=== PATIENT | male | born 1995 | race Hispanic/Latino ===

== ENCOUNTER 2016-07-30 11:10 | Emergency (ER) | payer OTHER ==
[~2016-07-30] VITALS: Ht 175.3 cm; Wt 81.8 kg
[2016-07-30 11:17] VITALS: BP 138/82; PULSE 81; RESP 16; O2SAT 99
--- NOTE | 2016-07-30 13:05 | ED.REPORT ---
HPI-General Illness Date of Service Jul 30, 2016 ED Provider: Dillon Cook PA-C Joaquin is a 20-year-old male with history of epilepsy who presents with a laceration on his left thumb. He states that he cut himself with a knife approximately 18 hours ago at work. Denies diabetes, HIV, immunosuppression, bleeding/clotting disorders. Reports that the thumb moves well, no weakness or numbness. He is up-to-date with his tetanus shot. He denies allergies. He is right-handed. Nursing Notes Stated Complaint: LEFT THUMB LACERATION Chief Complaint: Extremity Trauma Nursing Notes Reviewed: Yes Allergies: Coded Allergies: No Known Allergies (Verified , 07/30/16) Uncoded Allergies: No Known Allergies (Allergy, Severe, 06/15/03) Scheduled Cephalexin (Keflex) 500 Mg Capsule 500 MG PO QID General Time Seen by MD: 11:40 Chief Complaint Laceration Review of Systems Negative unless stated otherwise in history of present illness Physical Exam General: Well appearing, well developed, well nourished, no acute distress. Left thumb: 3 cm 3 corner flap laceration on the ulnar aspect of the left thumb. Full strength and range of motion at MCP PIP and DIP joint. Brisk capillary refill distal to the injury. No indication of foreign body or intrusion into the joint. Head: Atraumatic, normocephalic. Eyes: No scleral icterus or injection. No discharge. Vision grossly intact. ENT: Voice clear, hearing grossly intact. Respiratory: No respiratory distress, no increased work of breathing. Speaks in complete sentences. Skin: Warm and dry. Neurological: Grossly nonfocal. Psychological: alert and oriented. Speech appropriate, linear and logical. Behavior appropriate. Vital Signs Vital Signs Date Time Temp Pulse Resp B/P Pulse Ox O2 Delivery O2 Flow Rate FiO2 07/30/16 14:53 36.5 84 16 132/78 99 Room Air 07/30/16 11:17 36.4 81 16 138/82 99 Room Air Initial VS: Reviewed, Vital signs normal Procedures Laceration Management Laceration Management: 3 cm, 3 corner laceration to the dorsal aspect of the left thumb. Time: 14:25 Procedure Performed by: Allied health pract Consent / Setup / Site Prep: Informed consent provided, Consent from patient , Hand hygiene observed, Stand sterile technique Wound Length: 3 cm Local Anesthesia: Lidocaine 1% Digital Block: Yes Digit Involved: Thumb left Wound Preparation: Normal saline Debridement: None Irrigation: 150 cc Foreign Body Explore / Removal: Explored for foreign body Repair Skin: Nylon (6-0) # Sutures - Skin: 10 Closure Layers: 1 Suture Technique: Simple Post-Procedure / Complications: Antibiotic oint applied, Dressing applied, No complications, Condition improved, Tolerated procedure well, Patient stable Re-Eval/Medical Decision Med Decision/Clinical Course 20-year-old male with a history of epilepsy presents with a 3 cm, 3 corner laceration to the left thumb. He cut himself with a kitchen knife. Circulation, sensation, strength and motion are intact. Injury occurred approximately 18 hours ago. Tetanus is reportedly up-to-date last 2 years. Irrigated, sutured, and dressed with antibiotic ointment, gauze and splint. Provided 5 day course of Keflex out of consideration for the delayed closure. Provided wound care instructions, primary care follow-up, emergency return precautions. Discharge & Departure Primary Impression: Laceration of left thumb Encounter type: initial encounter Qualified Code: S61.012A - Laceration without foreign body of left thumb without damage to nail, initial encounter Disposition: Home Discharge Condition All VS Reviewed: Yes Condition: Stable Patient Instructions: Suture Care (ED) Additional Instructions: Evaluation in the emergency department for a laceration. This appears to be a clean wound, with no damage to the joint capsule or tendons. I will give a prescription for antibiotics to be taken 4 times a day for the next 5 days. Please take the entire course. you have told me that you are up-to-date on your tetanus shot. Please confirm this. It has been more than 5 years she will need an update. We have cleaned, sutured and dressed the wound with antibiotic ointment and gauze. I have also applied a splint. Please leave this dressing on and dry for the next 24 hours. After that you can remove the dressing, clean with soap and water and then reapply antibiotic ointment, gauze and splint. Please do not submerge the wound as in washing dishes, swimming or soaking in a tub until you have the sutures removed. The pain is best treated with 400 mg of ibuprofen (Advil, Motrin) every 6 hours , or 1000 mg of acetaminophen (Tylenol) every 6 hours. These drugs can be taken at the same time for more severe pain. Be vigilant for signs of infection. While a small amount of redness, tenderness and clear or pink drainage is normal, any increasing pain, redness, swelling or the appearance of pus suggests infection. More severe infection as suggested by symptoms such as fever, chills, feeling ill, racing heart. Please return to emergency Department if you notice signs of infection. Follow-up with your primary care provider or return to the emergency department in 10 days for suture removal. Referrals: OTHER,PHYSICIAN (PCP) [facility] (Family) EDSupervising Provider for APC: Maik Ponce MD copies to: [facility] Dillon Cook PA-C Jul 30, 2016 13:05
[2016-07-30] MEDS ORDERED: CEPH-512 PO (14:36)
[2016-07-30 14:53] VITALS: BP 132/78; PULSE 84; RESP 16; O2SAT 99
== END 2016-07-30 14:36 | disposition home or self-care (01) ==
LOC: SED 11:10
DX: S61.012A Laceration without foreign body of left thumb without damage to nail, initial encounter (principal); W26.0XXA Contact with knife, initial encounter; Y92.9 Unspecified place or not applicable; Y93.89 Activity, other specified; Y99.0 Civilian activity done for income or pay; Z86.69 Personal history of other diseases of the nervous system and sense organs